=== PATIENT | female | born 1955 | race Caucasian/White ===

== ENCOUNTER 2020-02-09 11:42 | Emergency (ER) | payer SELFPAY ==
[2020-02-09] MEDS ORDERED: LIDOCAINE 1% 2 ML VIAL SUBQ STA ×2 (12:56→13:00)
--- NOTE | 2020-02-09 13:00 | ED Physician Documentation ---
PD HPI WOUND RECHECK - Stated complaint Stated Complaint: BIG TOE PX/SWELLING BILAT - Chief complaint Chief Complaint: Wound - Histroy obtained from History obtained from: Patient - History of Present Illness Associated symptoms: Redness, Swelling - Additional information Additional information: She has longstanding pain of the right more than left great toe. Review of Systems Constitutional: reports: Reviewed and negative Eyes: reports: Reviewed and negative Ears: reports: Reviewed and negative Nose: reports: Reviewed and negative PD PAST MEDICAL HISTORY - Past Medical History Past Medical History: No - Present Medications Home Medications: Ambulatory Orders Medication Instructions Recorded Confirmed Terbinafine [Lamisil] 250 mg PO DAILY #84 tablet 02/09/20 - Allergies Allergies/Adverse Reactions: Allergies Allergy/AdvReac Type Severity Reaction Status Date / Time No Known Drug Allergies Allergy Verified 02/09/20 11:51 - Social History Smoking Status: Current every day smoker Does the pt drink ETOH?: Yes PD ED PE NORMAL - Vitals Vital signs reviewed: Yes - General General: Alert and oriented X 3, No acute distress - Extremities Extremities: Other (Onychomycosis which is the worst of the right great toe and the toenail is lifted off of the nailbed with inflammation. She has about 4- second cap refill in both feet suggestive of some level of chronic peripheral vascular disease.) - Neuro Neuro: Alert and oriented X 3, Normal speech Results - Vitals Vitals: Vital Signs - 24 hr 02/09/20 02/09/20 11:47 13:53 Temperature 36.2 C L 36.8 C Heart Rate 80 72 Respiratory 17 17 Rate Blood Pressure 181/73 H 150/75 H O2 Saturation 98 97 Oxygen O2 Source Room air Procedures - General procedure General procedure: Digital block was done of the right great toe With 1% lidocaine and then the toenail was removed without issue. A dressing was placed. PD MEDICAL DECISION MAKING - ED course ED course: 64-year-old woman has onychomycosis of the right toenail such that the right great toenail is lifted off of the nailbed and catching on things. A digital block was done it was removed without issue., We discussed the potential pitfalls of longstanding antifungal medication to treat this, I recommended against it given that she will not have likely the ability to check liver enzymes, and recommended she not fill the prescription unless she was able to arrange primary care for such follow-up. She also appears to have some level of peripheral vascular disease although no vascular emergency is present at this juncture and smoking cessation was advised as well as primary care for this as well. Departure - Departure Disposition: 01 Home, Self Care Clinical Impression: Onychomycosis Condition: Good Record reviewed to determine appropriate education?: Yes Instructions: ED Nail Infec Fungal Prescriptions: Terbinafine [Lamisil] 250 mg PO DAILY #84 tablet Comments: Refrain from drinking alcohol while you are on the antifungal medication. You will need to follow-up with your doctor every couple of weeks for liver function testing. Return if worsening. Discharge Date/Time: 02/09/20 13:45
[2020-02-09] MEDS ORDERED: LIDOCAINE 1% 2 ML VIAL ONE (13:10)
[2020-02-09 13:54] VITALS: BP 150/75
== END 2020-02-09 13:45 | disposition home or self-care (01) ==
LOC: ED 11:42
DX: B35.1 Tinea unguium (principal); I73.9 Peripheral vascular disease, unspecified; F17.200 Nicotine dependence, unspecified, uncomplicated
CPT/HCPCS: 11730

== ENCOUNTER 2021-07-28 08:50 | Outpatient (CLI) | payer SELFPAY | END 2021-07-28 08:51 | disposition critical access hospital (66) | LOC: EMS 08:50 | DX: R46.4 Slowness and poor responsiveness (principal); R06.89 Other abnormalities of breathing; R32 Unspecified urinary incontinence; R15.9 Full incontinence of feces | CPT/HCPCS: A0425; A0433 ==